=== PATIENT | female | born 1970 ===

== ENCOUNTER 2020-12-14 12:45 | Inpatient (IN) | payer OTHER ==
[~2020-12-14] VITALS: Ht 160 cm; Wt 86.2 kg
[2020-12-14] MEDS ORDERED: SYNTHROID50 MCG PO (17:02)
[2020-12-14] MEDS ORDERED: ZOCOR20 MG PO (17:03)
[2020-12-14] MEDS ORDERED: PROPRANOLOL HCL60 M1 PO (17:03)
[2020-12-21] MEDS ORDERED: MAXIMUM D3325 MCG (08:46)
[2020-12-21] MEDS ORDERED: ESCITALOPRAM OX20 MG (08:46)
== END 2020-12-23 11:53 | disposition home or self-care (01) | DRG 743 ==
LOC: OB/GYN 12-20 07:00 → O/R 12-20 09:10 → OB/GYN 12-20 12:45
PROVIDERS: ADMIT Specialist; ATTEND Specialist
PROC: 0UT20ZZ Resection of Bilateral Ovaries, Open Approach (ICD-10-PCS; 2020-12-20)
PROC: 0UT70ZZ Resection of Bilateral Fallopian Tubes, Open Approach (ICD-10-PCS; 2020-12-20)
PROC: 0UT90ZZ Resection of Uterus, Open Approach (ICD-10-PCS; principal; 2020-12-20 07:00)
DX: N80.0 Endometriosis of uterus (principal); N80.1 Endometriosis of ovary; N80.2 Endometriosis of fallopian tube; N83.11 Corpus luteum cyst of right ovary; D26.1 Other benign neoplasm of corpus uteri